=== PATIENT | male | born 1955 | race Caucasian/White ===

== ENCOUNTER 2017-11-12 11:36 | Emergency (ER) | payer OTHER ==
[~2017-11-12] VITALS: Ht 167.6 cm; Wt 63.5 kg
[~2017-11-12 11:36] MED LIST: GABA300C PO; INSU100I19 SQ; NORCO PO; NOVOLOG INSULIN PEN; TRAZ-144 PO
--- NOTE | 2017-11-12 11:42 | NUR ---
Dr Andersen at the bedside for MSE.
[2017-11-12] MEDS ORDERED: IV NORMAL SALINE 1000 ML BAG IV ONE (11:45)
[2017-11-12] MEDS ORDERED: LISI-607 PO (11:48)
[2017-11-12] MEDS ORDERED: ATOR40TA PO (11:48)
[2017-11-12] MEDS ORDERED: BACL20TA PO (11:48)
[2017-11-12] MEDS ORDERED: NOVOLOG INSULIN (11:56)
[2017-11-12] MEDS ORDERED: INSU100I19 SQ (11:56)
[2017-11-12 12:00] LABS: ABG BASE EXCESS -2.7 mmol/L; ABG HCO3 23.3 mmol/L; ABG PCO2 45.1 mmHg (35.0-45.0); ABG PH 7.331 (7.350-7.450); ABG PO2 33.4 mmHg (75.0-100.0); ABG SITE A-Line; ABG TOTAL HEMOGLOBIN 11.9 G/dL (13.5-18.0); COHb 1.9 % (0.5-1.5); MetHb 0.5 % (0.0-1.5); O2Hb 58.5 % (94.0-97.0); VENT MODE ROOM AIR
[2017-11-12 12:15] LABS: BASOPHILS % (AUTO) 0.2 % (0.0-2.0); HEMATOCRIT 35.3 % (36.7-47.1); LYMPHOCYTES # (AUTO) 0.8 K/uL (20.0-40.0); LYMPHOCYTES % (AUTO) 7.3 % (20.5-51.5); MEAN CORPUSCULAR HEMOGLOBIN 29.6 uug (23.8-33.4); MEAN CORPUSCULAR HGB CONC 34 g/dL (32.5-36.3); MONOCYTES # (AUTO) 0.3 K/uL (2.0-10.0); MONOCYTES % (AUTO) 3.1 % (0.0-11.0); NEUTROPHILS # (AUTO) 9.4 K/uL (1.8-8.9); NEUTROPHILS % (AUTO) 89.4 % (38.5-71.5); PLATELET COUNT (AUTO) 295 K/uL (152-348); RED BLOOD CELL COUNT(AUTO) 4.06 MIL/uL (4.06-5.63); WHITE BLOOD COUNT (AUTO) 10.5 K/uL (3.6-10.2)
[2017-11-12 12:18] LABS: CARBON DIOXIDE 25 mmol/L (21-32); CHLORIDE 103 mmol/L (98-107); CREATININE 1.1 mg/dL (0.6-1.3); POTASSIUM 4.9 mmol/L (3.5-5.1); UREA NITROGEN, BLOOD 28 mg/dL (7-18)
[2017-11-12 12:21] LABS: GLUCOSE 313 mg/dL (74-106)
[2017-11-12 12:22] LABS: ETHANOL 3 MG/DL (0-0)
[2017-11-12 12:23] LABS: ALANINE AMINOTRANSFERASE 16 U/L (16-63); ALKALINE PHOSPHATASE 67 U/L (50-136); ASPARTATE AMINOTRANSFERASE 8 U/L (15-37); BILIRUBIN,DIRECT < 0.1 mg/dL (0.0-0.2); BILIRUBIN,TOTAL 0.3 mg/dL (0.2-1.0); TOTAL PROTEIN, SERUM 7.3 g/dL (6.4-8.2)
--- NOTE | 2017-11-12 13:13 | NUR ---
Patient is resting comfortably in bed with eyes closed, NAD noted.
--- NOTE | 2017-11-12 13:28 | NUR ---
LIN CAMPOS SPOKE TO PT'S HEIDY AT [phone].
--- NOTE | 2017-11-12 13:55 | NUR ---
assissted Pt to bathroom, steady gait. Urine collected and sent to lab.
[2017-11-12 14:25] LABS: *BILIRUBIN,URIN NEGATIVE (NEGATIVE); *BLOOD, URINE NEGATIVE (NEGATIVE); *CLARITY,URINE CLEAR (CLEAR); *COLOR,URINE YELLOW (YELLOW); *KETONES,URINE 2+ (NEGATIVE); *PROTEIN,URINE NEGATIVE (NEGATIVE); *UROBILINOGEN,URINE 0.2 E.U./dl (NORMAL); LEUKOCYTE ESTERASE ,URINE NEGATIVE (NEGATIVE); NITRITE, URINE NEGATIVE (NEGATIVE)
[2017-11-12 14:39] LABS: UGLUCOSE 2+ (NEGATIVE)
[2017-11-12 14:40] LABS: MUCUS,URINE FEW /LPF (0-FEW); RBC,URINE 0-3 /HPF (0-3); WBC,URINE 0-3 /HPF (0-3)
--- NOTE | 2017-11-12 14:51 | NUR ---
Patient is resting comfortably in bed with eyes closed, NAD noted.
[2017-11-12 15:06] LABS: *AMPHETAMINE, URINE NEGATIVE (NEGATIVE); *BARBITURATE, URINE NEGATIVE (NEGATIVE); *CANNABINOID, URINE NEGATIVE (NEGATIVE); *COCCAINE, URINE NEGATIVE (NEGATIVE); *OPIATE, URINE NEGATIVE (NEGATIVE); *PHENCYCLIDINE SCREEN,URINE NEGATIVE (NEGATIVE)
--- NOTE | 2017-11-12 15:22 | NUR ---
IV removed. Catheter intact and site benign. Pressure and 4x4 gauze applied to site. No bleeding noted.
[2017-11-12 15:23] VITALS: BP 153/91
== END 2017-11-12 15:24 | disposition home or self-care (01) ==
LOC: ER 11:36
DX: E11.65 Type 2 diabetes mellitus with hyperglycemia (principal); I10 Essential (primary) hypertension; Z90.49 Acquired absence of other specified parts of digestive tract; Z79.4 Long term (current) use of insulin; Z79.891 Long term (current) use of opiate analgesic; Z79.899 Other long term (current) drug therapy
CPT/HCPCS: 36415; 36600; 70030-TC; 70450; 80307; 85025; A4663; G0480; J7030

== ENCOUNTER 2018-05-01 07:15 | Emergency (ER) | payer OTHER ==
[~2018-05-01] VITALS: Ht 180.3 cm; Wt 79.4 kg
[~2018-05-01 07:15] MED LIST changes: -GABA300C PO; -INSU100I19 SQ; -NORCO PO; -NOVOLOG INSULIN PEN; +REPA1TAB6 PO; -TRAZ-144 PO
[2018-05-01] MEDS ORDERED: DEXTROSE 50% 50 ML DISP.SYRIN IV ONE ×2 (07:30)
--- NOTE | 2018-05-01 07:34 | NUR ---
pt fully awake now,axox4, talking to tomi prater.
[2018-05-01 07:38] LABS: BASOPHILS # (AUTO) 0.1 K/uL (0.0-8.0); BASOPHILS % (AUTO) 0.5 % (0.0-2.0); EOSINOPHILS # (AUTO) 0.1 K/uL (0.0-0.7); EOSINOPHILS % (AUTO) 0.6 % (0.0-7.0); HEMOGLOBIN 13.3 g/dL (12.5-16.3); LYMPHOCYTES # (AUTO) 1.9 K/uL (20.0-40.0); LYMPHOCYTES % (AUTO) 19.6 % (20.5-51.5); MEAN CORPUSCULAR HEMOGLOBIN 29.6 uug (23.8-33.4); MEAN CORPUSCULAR HGB CONC 34 g/dL (32.5-36.3); MEAN CORPUSCULAR VOLUME 86.6 fL (73.0-96.2); MONOCYTES # (AUTO) 0.5 K/uL (2.0-10.0); MONOCYTES % (AUTO) 5.6 % (0.0-11.0); NEUTROPHILS # (AUTO) 7.1 K/uL (1.8-8.9); NEUTROPHILS % (AUTO) 73.7 % (38.5-71.5); PLATELET COUNT (AUTO) 328 K/uL (152-348); WHITE BLOOD COUNT (AUTO) 9.6 K/uL (3.6-10.2)
[2018-05-01 07:46] LABS: CARBON DIOXIDE 33 mmol/L (21-32); CHLORIDE 107 mmol/L (98-107); CREATININE 1.1 mg/dL (0.6-1.3); POTASSIUM 3.9 mmol/L (3.5-5.1); UREA NITROGEN, BLOOD 22 mg/dL (7-18)
--- NOTE | 2018-05-01 07:46 | NUR ---
hospital breakfast tray provided for pt.
[2018-05-01 07:48] LABS: GLUCOSE 25 mg/dL (74-106)
[2018-05-01 07:53] LABS: ETHANOL < 3 MG/DL (0-0)
[2018-05-01 07:58] LABS: ALANINE AMINOTRANSFERASE 23 U/L (16-63); ALKALINE PHOSPHATASE 59 U/L (50-136); ASPARTATE AMINOTRANSFERASE 21 U/L (15-37); BILIRUBIN,DIRECT < 0.1 mg/dL (0.0-0.2); BILIRUBIN,TOTAL 0.2 mg/dL (0.2-1.0); TOTAL PROTEIN, SERUM 7.5 g/dL (6.4-8.2)
--- NOTE | 2018-05-01 10:49 | NUR ---
pt walks in steady gait. pt says feels better, no sign of distress. Addendum: 05/01/18 at 1051 by AUDREY pt taking the pt home.
[2018-05-01 10:50] VITALS: BP 131/81
[2018-05-01] MEDS ORDERED: DEXTROSE 50% 50 ML DISP.SYRIN ONE (12:51)
== END 2018-05-01 10:51 | disposition home or self-care (01) ==
LOC: MERGE 07:15 → ER 07:15 → EDBD 07:15 → ER 10:51
DX: E11.649 Type 2 diabetes mellitus with hypoglycemia without coma (principal)
CPT/HCPCS: 36415; 80048; 80076; 84484; 85025; 85730; 93005; 96374; 99285; A4663; G0480; J3490; 70030-TC

== ENCOUNTER 2021-06-09 01:17 | Emergency (ER) | payer OTHER ==
[~2021-06-09] VITALS: Ht 167.6 cm; Wt 68.0 kg
[~2021-06-09 01:17] MED LIST changes: -REPA1TAB6 PO; +REPA1TAB7 PO
[2021-06-09 01:40] LABS: HEMATOCRIT 33.7 % (36.7-47.1); MEAN CORPUSCULAR HEMOGLOBIN 26.8 uug (23.8-33.4); MEAN CORPUSCULAR VOLUME 81.8 fL (73.0-96.2); PLATELET COUNT (AUTO) 329 K/uL (152-348)
[2021-06-09 01:48] LABS: CREATININE 1.3 mg/dL (0.6-1.3); POTASSIUM 4.3 mmol/L (3.5-5.1)
--- NOTE | 2021-06-09 02:45 | NUR ---
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 Catheter intact and site benign. Pressure and 4x4 gauze applied to site. No bleeding noted.
--- NOTE | 2021-06-09 02:50 | NUR ---
Patient discharged to home in stable condition. Written and verbal after care instructions given. Patient verbalizes understanding of instructions. Stressed follow up or return to ER for worsening s/s.
[2021-06-09 03:05] VITALS: BP 145/87
== END 2021-06-09 03:06 | disposition home or self-care (01) ==
LOC: ER 01:21
DX: E11.641 Type 2 diabetes mellitus with hypoglycemia with coma (principal); Z79.4 Long term (current) use of insulin
CPT/HCPCS: 36415; 85025; A4663

== ENCOUNTER 2021-06-12 18:16 | Emergency (ER) | payer OTHER ==
[~2021-06-12] VITALS: Ht 172.7 cm; Wt 77.1 kg
--- NOTE | 2021-06-12 18:27 | NUR ---
No information about current home medications available.
[2021-06-12] MEDS ORDERED: DEXTROSE 50% 50 ML DISP.SYRIN IV ONE (18:30)
--- NOTE | 2021-06-12 18:35 | NUR ---
PT IS IN ROOM #1A. DR HIGH EVALUATED THE PT.
[2021-06-12] MEDS ORDERED: DEXTROSE 50% 50 ML DISP.SYRIN ONE (18:38)
--- NOTE | 2021-06-12 19:23 | NUR ---
Received patient from day shift nurse, here for hypoglycemia. Recheck of blood sugar shows its in the 80s. Patient is currently calm and cooperative. Provided dinner and is now eating.
[2021-06-12] MEDS ORDERED: GLUC1KIT IM (20:28)
[2021-06-12 21:04] VITALS: BP 162/99
--- NOTE | 2021-06-12 21:05 | NUR ---
Patient discharged to home in stable condition. Patient able to leave under his own power. Written and verbal after care instructions given. Patient verbalizes understanding of instructions. Stressed follow up or return to ER for worsening s/s. No SOB or signs of distress. Patient declined ticket to ride offer.
== END 2021-06-12 20:55 | disposition home or self-care (01) ==
LOC: ER 18:18
DX: E11.649 Type 2 diabetes mellitus with hypoglycemia without coma (principal)
CPT/HCPCS: 82962 ×2; 96374; 99284; J3490; A4663

== ENCOUNTER 2021-08-03 01:05 | Emergency (ER) | payer OTHER ==
[~2021-08-03] VITALS: Ht 172.7 cm; Wt 73.6 kg
[~2021-08-03 01:05] MED LIST changes: +GLUC1KIT IM
--- NOTE | 2021-08-03 01:14 | NUR ---
Pt arrived by RA for low blood sugar. Pt awake and alert. No complaints of pain or discomfort. No sob noted.
--- NOTE | 2021-08-03 01:16 | NUR ---
BS checked by bran, H[place]. Informed Dr. Sultana. Provided food. Assisted with eating and drinking. Lab at bedside to draw blood.
[2021-08-03 01:30] LABS: HEMATOCRIT 35.8 % (36.7-47.1); MEAN CORPUSCULAR HEMOGLOBIN 27.1 uug (23.8-33.4); MEAN CORPUSCULAR VOLUME 83.3 fL (73.0-96.2); PLATELET COUNT (AUTO) 334 K/uL (152-348)
[2021-08-03 01:38] LABS: CREATININE 1.8 mg/dL (0.6-1.3); MAGNESIUM 2.3 mg/dL (1.8-2.4); POTASSIUM 3.5 mmol/L (3.5-5.1)
[2021-08-03] MEDS ORDERED: GLUC1KIT IM (01:53)
--- NOTE | 2021-08-03 02:30 | NUR ---
Pt bs at 114. MD informed. No new order given.
--- NOTE | 2021-08-03 03:00 | NUR ---
Message left for patient's . Pt is discharged per Dr. Sultana.
--- NOTE | 2021-08-03 04:18 | NUR ---
Informed patient of discharge and clearance per Dr. Sultana. Explained taxi voucher will be provided and taxi will be called for patient.
--- NOTE | 2021-08-03 04:44 | NUR ---
Called [facility] for patient pick-up. ETA of 1 hr. Patient made aware.
--- NOTE | 2021-08-03 05:57 | NUR ---
Called Taxi services states another 30 minutes to one hour.
--- NOTE | 2021-08-03 07:19 | NUR ---
Research Scholar assumes care: Patient is AOx4, moving all extremities, respiration:easy. Patient is medically cleared to go home by Dr Sultana. Patient's taxi ( provided by the hospital)will arrive in about 15 minutes. Patient ambulated to ER wating room with steady gait and will wait for his ride in the ER waiting room.
--- NOTE | 2021-08-03 08:08 | NUR ---
Patient is seen resting comfortably on a chair in ER waiting room with hospital blanket on. Patient ate 75% sandwich and drank iced juice with good appetite, NAD.
--- NOTE | 2021-08-03 08:51 | NUR ---
Patient ate hot breakfast with good appetite, still waiting for taxi ride.
== END 2021-08-03 09:03 | disposition home or self-care (01) ==
LOC: ER 01:08
DX: E11.649 Type 2 diabetes mellitus with hypoglycemia without coma (principal); T38.3X5A Adverse effect of insulin and oral hypoglycemic [antidiabetic] drugs, initial encounter; Z79.4 Long term (current) use of insulin; Y92.414 Local residential or business street as the place of occurrence of the external cause; E11.22 Type 2 diabetes mellitus with diabetic chronic kidney disease; N18.9 Chronic kidney disease, unspecified; D64.9 Anemia, unspecified
CPT/HCPCS: 36415; 83735; 85025; A4663

== ENCOUNTER 2021-10-28 11:53 | Emergency (ER) | payer MEDICARE, OTHER ==
[~2021-10-28] VITALS: Ht 170.2 cm; Wt 72.6 kg
[2021-10-28 12:24] LABS: HEMATOCRIT 36.4 % (36.7-47.1); MEAN CORPUSCULAR HEMOGLOBIN 27.7 uug (23.8-33.4); MEAN CORPUSCULAR VOLUME 84.5 fL (73.0-96.2); PLATELET COUNT (AUTO) 278 K/uL (152-348)
--- NOTE | 2021-10-28 12:24 | NUR ---
PT IS IN ROOM #2B. DR ROTHMAN EVALUATED THE PT.
[2021-10-28 12:29] LABS: CARBON DIOXIDE 25 mmol/L (21-32); CHLORIDE 103 mmol/L (98-107); CREATININE 1.5 mg/dL (0.6-1.3); GLUCOSE 66 mg/dL (74-106); POTASSIUM 3.8 mmol/L (3.5-5.1); UREA NITROGEN, BLOOD 26 mg/dL (7-18)
[2021-10-28 12:38] LABS: ALANINE AMINOTRANSFERASE 21 U/L (16-63); ALKALINE PHOSPHATASE 73 U/L (50-136); ASPARTATE AMINOTRANSFERASE 17 U/L (15-37); BILIRUBIN,DIRECT 0.1 mg/dL (0.0-0.2); BILIRUBIN,TOTAL 0.2 mg/dL (0.2-1.0); TOTAL PROTEIN, SERUM 7.6 g/dL (6.4-8.2)
[2021-10-28] MEDS ORDERED: IV NORMAL SALINE 1000 ML BAG IV ONE (12:45)
[2021-10-28 14:29] LABS: *BILIRUBIN,URIN NEGATIVE (NEGATIVE); *BLOOD, URINE NEGATIVE (NEGATIVE); *CLARITY,URINE CLEAR (CLEAR); *COLOR,URINE YELLOW (YELLOW); *KETONES,URINE NEGATIVE (NEGATIVE); *UROBILINOGEN,URINE 0.2 E.U./dl (NORMAL); LEUKOCYTE ESTERASE ,URINE NEGATIVE (NEGATIVE); NITRITE, URINE NEGATIVE (NEGATIVE); PH,URINE 5.5 (5.0-8.0); UGLUCOSE 2+ (NEGATIVE)
[2021-10-28 14:41] LABS: BACTERIA,URINE NONE SEEN /HPF (NONE SEEN); SQUAMOUS EPITHELIAL CELL,UR NONE SEEN /HPF (NONE SEEN); WBC,URINE NONE SEEN /HPF (0-3)
--- NOTE | 2021-10-28 15:09 | NUR ---
PT WAS D/C'd TO HOME AFTER DR ROTHMAN RE-EVALUATION. D/C INSTRUCTIONS GIVEN TO THE PT BY DR ROTHMAN.
[2021-10-28 15:11] VITALS: BP 134/77
== END 2021-10-28 15:17 | disposition home or self-care (01) ==
LOC: ER 11:55
DX: E11.649 Type 2 diabetes mellitus with hypoglycemia without coma (principal); T38.3X5A Adverse effect of insulin and oral hypoglycemic [antidiabetic] drugs, initial encounter; Z79.4 Long term (current) use of insulin; Y92.513 Shop (commercial) as the place of occurrence of the external cause; D64.9 Anemia, unspecified; U07.1 COVID-19; R94.31 Abnormal electrocardiogram [ECG] [EKG]
CPT/HCPCS: 36415; 71045; 84484; 85025; 87086; 93005; A4663; J7030

== ENCOUNTER 2022-08-26 07:23 | Emergency (ER) | payer MEDICARE, OTHER ==
[~2022-08-26] VITALS: Ht 167.6 cm; Wt 65.8 kg
[2022-08-26] MEDS ORDERED: DEXTROSE 50% 50 ML DISP.SYRIN IV ONE (07:30)
[2022-08-26] MEDS ORDERED: DEXTROSE 50% 50 ML DISP.SYRIN ONE (07:47)
[2022-08-26 07:57] LABS: HEMATOCRIT 36.2 % (36.7-47.1); MEAN CORPUSCULAR HEMOGLOBIN 29.1 uug (23.8-33.4); MEAN CORPUSCULAR VOLUME 87.7 fL (73.0-96.2); PLATELET COUNT (AUTO) 425 K/uL (152-348)
--- NOTE | 2022-08-26 08:02 | NUR ---
Patient voided 450mL. Urine specimen sent to lab.
[2022-08-26 08:03] LABS: CARBON DIOXIDE 28 mmol/L (21-32); CHLORIDE 105 mmol/L (98-107); CREATININE 1.4 mg/dL (0.6-1.3); GLUCOSE 121 mg/dL (74-106); POTASSIUM 3.9 mmol/L (3.5-5.1); UREA NITROGEN, BLOOD 32 mg/dL (7-18)
[2022-08-26 08:05] LABS: ETHANOL < 3 MG/DL (0-0)
[2022-08-26 08:08] LABS: ACETAMINOPHEN < 2.0 ug/mL (10-30)
[2022-08-26 08:12] LABS: ALANINE AMINOTRANSFERASE 28 U/L (16-63); ALKALINE PHOSPHATASE 66 U/L (50-136); ASPARTATE AMINOTRANSFERASE 46 U/L (15-37); BILIRUBIN,DIRECT 0.1 mg/dL (0.0-0.2); BILIRUBIN,TOTAL 0.2 mg/dL (0.2-1.0); LIPASE 46 U/L (73-393); TOTAL PROTEIN, SERUM 7.9 g/dL (6.4-8.2)
[2022-08-26 08:27] LABS: *BILIRUBIN,URIN NEGATIVE (NEGATIVE); *CLARITY,URINE CLEAR (CLEAR); *COLOR,URINE YELLOW (YELLOW); *KETONES,URINE NEGATIVE (NEGATIVE); *UROBILINOGEN,URINE 0.2 E.U./dl (NORMAL); LEUKOCYTE ESTERASE ,URINE NEGATIVE (NEGATIVE); NITRITE, URINE NEGATIVE (NEGATIVE); UGLUCOSE TRACE (NEGATIVE)
[2022-08-26 08:28] LABS: *BLOOD, URINE TRACE (NEGATIVE)
[2022-08-26 08:37] LABS: THYROID STIMULATING HORMONE 3.175 mIU/mL (0.358-3.740)
[2022-08-26 08:41] LABS: VENT MODE, VBG ROOM AIR
[2022-08-26] MEDS ORDERED: ASPIRIN 325 MG TABLET PO ONE (08:45)
[2022-08-26] MEDS ORDERED: ASPIRIN 325 MG TABLET ONE (08:48)
--- NOTE | 2022-08-26 08:54 | NUR ---
Dr Tapia spoke to Dr Taylor, fitness leader.
[2022-08-26 09:13] LABS: *AMPHETAMINE, URINE NEGATIVE (NEGATIVE); *CANNABINOID, URINE NEGATIVE (NEGATIVE); *COCCAINE, URINE NEGATIVE (NEGATIVE); *PHENCYCLIDINE SCREEN,URINE NEGATIVE (NEGATIVE)
--- NOTE | 2022-08-26 09:19 | NUR ---
Dr Estrada at bedside.
[2022-08-26] MEDS ORDERED: HEPARIN SODIUM,PORCINE 5,000 UNITS/ML VIAL ONE (09:44)
[2022-08-26] MEDS ORDERED: HEPARIN SODIUM,PORCINE 5,000 UNITS/ML VIAL IV ONE (09:45)
--- NOTE | 2022-08-26 09:59 | NUR ---
Gave report to PASCUAL Roblero at [facility]. Patient to go to room 327 bed 1.
--- NOTE | 2022-08-26 10:16 | NUR ---
Patient in bed awake. No acute distress noted. and son at bedside. Denies chest pain. Will continue to monitor.
--- NOTE | 2022-08-26 10:34 | NUR ---
Patient decided to leave AMA. Dr. Tapia explained risks of leaving the hospital. Patient signed form.
[2022-08-26 10:53] VITALS: BP 135/84
[2022-08-26 11:24] LABS: BACTERIA,URINE NONE SEEN /HPF (NONE SEEN); RBC,URINE 0-3 /HPF (0-3); SQUAMOUS EPITHELIAL CELL,UR FEW /HPF (NONE SEEN); WBC,URINE 0-3 /HPF (0-3)
== END 2022-08-26 10:54 | disposition left against medical advice (07) ==
LOC: ER 07:23
DX: I21.4 Non-ST elevation (NSTEMI) myocardial infarction (principal); E11.649 Type 2 diabetes mellitus with hypoglycemia without coma; R01.1 Cardiac murmur, unspecified; Z79.4 Long term (current) use of insulin; Z59.02 Unsheltered homelessness; Z20.822 Contact with and (suspected) exposure to COVID-19
CPT/HCPCS: 80076; 80048; 81001; 82962 ×2; 83690; 84443; 85025; 85730; 86850; 86900; 86901; 87426; 84484 ×2; 36415; 93005 ×2; 71045; 99285; 96374; 96375; 82375; 80299; 80320; 80179; 80307; 36600; J3490; J1644; A4663; G0480